=== PATIENT | male | born 1960 | race Caucasian/White ===

== ENCOUNTER 2024-07-14 06:20 | Day surgery (SDC) | payer MEDICARE, OTHER, SELFPAY | END 2024-07-14 12:26 | disposition home or self-care (01) | LOC: GI 06:20 | PROVIDERS: ATTENDING PHYSICIAN Internal Medicine Gastroenterology | DX: Z12.11 Encounter for screening for malignant neoplasm of colon (principal); K57.30 Diverticulosis of large intestine without perforation or abscess without bleeding; K62.89 Other specified diseases of anus and rectum; R12 Heartburn; K31.7 Polyp of stomach and duodenum; K20.0 Eosinophilic esophagitis; Z86.0101 Personal history of adenomatous and serrated colon polyps; Z15.09 Genetic susceptibility to other malignant neoplasm; Z80.0 Family history of malignant neoplasm of digestive organs; D12.2 Benign neoplasm of ascending colon | CPT/HCPCS: 45380; 43239; 88305 ==